=== PATIENT | female | born 1990 | race Caucasian/White ===

== ENCOUNTER 2016-06-26 04:08 | Inpatient (IN) ==
[2016-06-26] MEDS ORDERED: Ondansetron 4 MG/2 ML VIAL IVP ONE ×2 (04:29→08:37)
[2016-06-26] MEDS ORDERED: 0.9 % Sodium Chloride 1,000 ML IVC ONE (04:29)
[2016-06-26] MEDS ORDERED: *HR* Morphine 2 MG/ML SYRINGE IVP PRN (04:32)
--- NOTE | 2016-06-26 04:36 | Emergency Department Note ---
Disposition Clinical Impression: Abdominal pain Qualifiers: Abdominal location: right lower quadrant Qualified Code(s): R10.31 - Right lower quadrant pain Disposition: Still a Patient Referrals: Nevaeh Carter READING PROFESSOR [Primary Care Provider] - Forms: Work/School Release, ED Satisfaction Letter Abdominal Pain HPI - General Chief Complaint: ED Abdominal Pain Stated Complaint: ABD PAIN Time Seen by Provider: 06/26/16 04:16 Source: patient Mode of arrival: ambulatory Limitations: no limitations Nursing Notes Reviewed: Yes Vital Signs Reviewed: Yes - History of Present Illness HPI Narrative: 25-year-old otherwise healthy female, history of hypothyroid presents for evaluation of abdominal pain. Patient states the pain started approximately 2 days ago on the right side and became more localized in the RLQ over 24hrs. Pain is worse with movement or palpation. Patient denies any nausea or vomiting. Patient does note a temperature earlier today at 100.3 Fahrenheit. Patient has not had any anti-inflammatories prior to the emergency department. Patient denies any diarrhea or constipation. Patient does note a diversion appetite today. Patient denies any vaginal bleeding or discharge. Patient had her last menstrual period in the beginning of June. Denies history of ovarian cysts. Patient's last meal was last night. Pt Subjective Complaint: abdominal pain Onset (ago): day(s) Consistency: constant Location: RLQ Pain Scale: 7 - Related Data Allergies Allergy/AdvReac Type Severity Reaction Status Date / Time No Known Allergies Allergy Verified 06/26/16 04:36 All systems ED: reviewed and negative except as stated. Constitutional: Reports: as per HPI, fever Eyes: Reports: as per HPI ENT ED: Reports: as per HPI Cardiovascular: Reports: as per HPI. Denies: chest pain, palpitations Respiratory: Reports: as per HPI. Denies: dyspnea Gastrointestinal: Reports: as per HPI, abdominal pain. Denies: nausea, vomiting , diarrhea, constipation Genitourinary: Reports: as per HPI Musculoskeletal: Reports: as per HPI Integumentary: Reports: as per HPI Neurological: Reports: as per HPI Psychiatric: Reports: as per HPI Endocrine: Reports: as per HPI Hematological/Lymphatic: Reports: as per HPI Abdominal Pain PMH - Past Medical History Medical history: Reports: thyroid disease Psychiatric history: Reports: no psych history - Social History Smoking status: Never smoker Alcohol use: Reports: none Drug use: Reports: none Physical Exam - General Limitations: no limitations General appearance: alert, in no apparent distress - Head Head exam: atraumatic, normocephalic, normal inspection - Eye Eye exam: Present: normal appearance, PERRL, EOMI - ENT ENT exam: normal exam, mucous membranes moist - Neck Neck exam: Present: normal inspection, trachea midline - Chest Chest inspection: Present: normal inspection, symmetric chest wall rise. Absent : tenderness - Respiratory Respiratory exam: Present: normal lung sounds bilaterally. Absent: respiratory distress - Cardiovascular Cardiovascular exam: Present: regular rate, tachycardia - Abdominal Exam Abdominal exam: Present: soft, tenderness (Right lower quadrant tenderness to mild palpation), guarding (Voluntary), normal bowel sounds, tenderness at McBurney's Point. Absent: rebound, Rovsing's sign - Extremities Exam Extremities exam: Present: normal inspection. Absent: pedal edema - Back Exam Back exam: Present: normal inspection - Neurological Exam Neurological exam: Present: alert, oriented X3 - Skin Skin exam: Present: warm, dry, intact, normal color. Absent: rash Course Course Narrative: Patient seen and examined upon arrival. Patient's history is concerning for appendicitis. Patient will get IV fluids, pain control, labs as well as a urine. Patient is a smaller female and is getting IV as well as oral CT contrast. - Reevaluation(s) Reevaluation #1: Patient seen and examined. Patient denies any need for pain medication. Patient's labs are pending. Patient scheduled for CT with by mouth contrast as well as IV contrast. Time: 05:37 Reevaluation #2: Patient pain improved following Dilaudid. Time: 06:33 Vital Signs Temperature 98.2 F 06/26/16 04:15 Pulse Rate 127 06/26/16 04:15 Respiratory Rate 18 06/26/16 04:15 Blood Pressure 130/80 06/26/16 04:15 O2 Sat by Pulse Oximetry 96 06/26/16 04:15 Temperature 98.2 F 06/26/16 04:15 Pulse Rate 127 06/26/16 04:15 Respiratory Rate 18 06/26/16 04:15 Blood Pressure 130/80 06/26/16 04:15 O2 Sat by Pulse Oximetry 96 06/26/16 04:15 Oxygen Delivery Oxygen Delivery Room Air Abdominal Pain - MDM Narrative Medical decision making narrative: Patient presents with right-sided abdominal pain became localized in the right lower quadrant past 24 hours. Patient has a concerning history of appendicitis. Patient's lab work reviewed shows a leukocytosis of 14,000. Patient's abdominal exam is voluntary guarding without rebound in the right lower quadrant. Patient's tender with moderate to deep palpation in the right lower quadrant. Due to patient's body habitus, the patient received oral as well as IV contrast or CT of the abdomen and pelvis. Patient's pain was treated with opioids in the emergency department. At the time of this dictation , the patient CT scan is not official interpreted by the radiologist. The patient will be signed out to the oncoming provider. - Lab Data Lab results reviewed: Yes I reviewed the patient's lab results. Result diagrams: 06/26/16 05:24 06/26/16 05:24 Lab Results 06/26/16 06/26/16 06/26/16 Range/Units 04:35 04:37 05:24 WBC 14.6 H (4.3-11.1) K/mcL RBC 4.72 (3.82-4.97) M/mcL Hgb 15.4 (11.5-15.4) g/dL Hct 44.4 (35.3-44.9) % MCV 94.1 (83.0-100.0) fL MCH 32.6 (28.0-33.3) pg MCHC 34.7 (31.6-35.5) g/dL RDW 11.8 (11.5-14.5) % Plt Count 273 (140-400) K/mcL MPV 9.1 L (9.4-12.4) fL Immature Gran % 0.4 (0-4) % Seg Neutrophils % 85.0 % Lymphocytes % 8.0 % Monocytes % 6.2 % Eosinophils % 0.1 % Basophils % 0.3 % Neutrophils # 12.4 H (1.6-8.9) K/mcL Lymphocytes # 1.2 (0.6-4.6) K/mcL Monocytes # 0.9 (0.0-1.3) K/mcL Eosinophils # 0.0 (0.0-0.6) K/mcL Basophils # 0.0 (0.0-0.2) K/mcL Sodium (136-145) mEq/L Potassium (3.5-4.5) mEq/L Chloride (98-109) mEq/L Carbon Dioxide (19-29) mEq/L BUN (7-20) mg/dL Creatinine (0.57-1.11) mg/dL Est GFR ( Amer) (> 60) Est GFR (Non-Af Amer) (> 60) BUN/Creatinine Ratio (6-26) Glucose (70-99) mg/dL Calculated Osmolality (280-300) Calcium (8.6-10.8) mg/dL Total Bilirubin (0.2-1.2) mg/dL Direct Bilirubin (0.0-0.5) mg/dL Indirect Bilirubin (0.0-1.2) mg/dL AST (5-34) Units/L ALT (0-55) Units/L Alkaline Phosphatase (38-126) Units/L Serum Total Protein (6.0-8.3) g/dL Albumin (3.5-5.0) g/dL Globulin (2.4-3.5) g/dL Albumin/Globulin Ratio (1.1-2.2) Lipase (8-78) Units/L TSH (0.350-4.840) mcIU/mL Urine Color Yellow (Yellow) Urine Clarity Clear (Clear) Urine pH 7.0 (5.0-8.0) pH Units Ur Specific [place] 1.020 (1.010-1.025) Urine Protein Trace (Neg-Trace) mg/dL Urine Glucose (UA) Normal (Normal) mg/dL Urine Ketones >=160 H (Negative) mg/dL Urine Blood Small H (Negative) Urine Nitrite Negative (Negative) Urine Bilirubin Negative (Negative) Urine Urobilinogen Normal (Normal) mg/dL Ur Leukocyte Esterase Negative (Negative) Urine Microscopic WBC 3-5 H (0-3) per hpf Ur Squamous Epith Cells Few (None-Few) per lpf Urine Bacteria Few (None-Few) per hpf Ur Culture Indicated? NO (NO) Urine Test Negative (Negative) 06/26/16 06/26/16 Range/Units 05:24 05:24 WBC (4.3-11.1) K/mcL RBC (3.82-4.97) M/mcL Hgb (11.5-15.4) g/dL Hct (35.3-44.9) % MCV (83.0-100.0) fL MCH (28.0-33.3) pg MCHC (31.6-35.5) g/dL RDW (11.5-14.5) % Plt Count (140-400) K/mcL MPV (9.4-12.4) fL Immature Gran % (0-4) % Seg Neutrophils % % Lymphocytes % % Monocytes % % Eosinophils % % Basophils % % Neutrophils # (1.6-8.9) K/mcL Lymphocytes # (0.6-4.6) K/mcL Monocytes # (0.0-1.3) K/mcL Eosinophils # (0.0-0.6) K/mcL Basophils # (0.0-0.2) K/mcL Sodium 133 L (136-145) mEq/L Potassium 4.0 (3.5-4.5) mEq/L Chloride 101 (98-109) mEq/L Carbon Dioxide 18 L (19-29) mEq/L BUN 12 (7-20) mg/dL Creatinine 0.86 (0.57-1.11) mg/dL Est GFR ( Amer) > 60 (> 60) Est GFR (Non-Af Amer) > 60 (> 60) BUN/Creatinine Ratio 14 (6-26) Glucose 110 H (70-99) mg/dL Calculated Osmolality 276 L (280-300) Calcium 10.6 (8.6-10.8) mg/dL Total Bilirubin 1.3 H (0.2-1.2) mg/dL Direct Bilirubin 0.6 H (0.0-0.5) mg/dL Indirect Bilirubin 0.7 (0.0-1.2) mg/dL AST 19 (5-34) Units/L ALT 15 (0-55) Units/L Alkaline Phosphatase 66 (38-126) Units/L Serum Total Protein 8.6 H (6.0-8.3) g/dL Albumin 4.8 (3.5-5.0) g/dL Globulin 3.8 H (2.4-3.5) g/dL Albumin/Globulin Ratio 1.3 (1.1-2.2) Lipase 4 L (8-78) Units/L TSH 0.448 (0.350-4.840) mcIU/mL Urine Color (Yellow) Urine Clarity (Clear) Urine pH (5.0-8.0) pH Units Ur Specific [place] (1.010-1.025) Urine Protein (Neg-Trace) mg/dL Urine Glucose (UA) (Normal) mg/dL Urine Ketones (Negative) mg/dL Urine Blood (Negative) Urine Nitrite (Negative) Urine Bilirubin (Negative) Urine Urobilinogen (Normal) mg/dL Ur Leukocyte Esterase (Negative) Urine Microscopic WBC (0-3) per hpf Ur Squamous Epith Cells (None-Few) per lpf Urine Bacteria (None-Few) per hpf Ur Culture Indicated? (NO) Urine Test (Negative) S.B[facility]R. - [facility].A.RDimitry Situation: Demographics Background: Presenting Complaint, Relevant PMH, Meds, & Allergies Assessment: Vital Signs, Course and respsone to treatment, Patient/Family Expectation Recommendation: Barrier(s) to disposition (CT abd pelvis), Recommendation based on pending studies, treatments, or consults S.B.A.RDimitry Report Given to: Dr. Herb GrissomAJuly Repor Time: 07:09 Attestation Statement - Attestation Attestation: I examined this patient and my medical decision-making was reviewed with the SENIOR SOURCING MANAGER/PA/Advanced Practice Nurse/Resident Physician. I agree with the documented findings, disposition and treatment plan as described except to the extent set forth below. Patient to ED with abdominal pain. Onset 2 days ago. Has progressed. Now with no appetite. This kept her up all night. Low-grade fever at home. Denies any vaginal symptoms. On examination she is in no acute distress. She has right lower quadrant tenderness. Plan. Labs and CT scan rule out appendicitis.
[2016-06-26 04:45] LABS: Bilirubin,Urine Negative (Negative); Blood,Urine Small (Negative); Clarity,Urine Clear (Clear); Color,Urine Yellow (Yellow); Glucose,Urine (UA) Normal (Normal); Ketones,Urine >=160 mg/dL (Negative); Leukocyte Esterase,Urine Negative (Negative); Nitrite,Urine Negative (Negative); Protein,Urine Trace mg/dL (Neg-Trace); Urobilinogen,Urine Normal (Normal)
[2016-06-26 04:51] LABS: Bacteria,Urine Few per hpf (None-Few); Squamous Epithelial Cell,Urine Few per lpf (None-Few)
[2016-06-26 05:31] LABS: Basophils % 0.3 %; Eosinophils % 0.1 %; Hematocrit 44.4 % (35.3-44.9); Hemoglobin 15.4 g/dL (11.5-15.4); Immature Granulocytes % 0.4 % (0-4); Lymphocytes # 1.2 K/mcL (0.6-4.6); Mean Corpuscular HGB Conc 34.7 g/dL (31.6-35.5); Mean Corpuscular Hemoglobin 32.6 pg (28.0-33.3); Mean Corpuscular Volume 94.1 fL (83.0-100.0); Mean Platelet Volume 9.1 fL (9.4-12.4); Monocytes # 0.9 K/mcL (0.0-1.3); Monocytes % 6.2 %; Neutrophils # 12.4 K/mcL (1.6-8.9); Platelet Count 273 K/mcL (140-400); Red Blood Count 4.72 M/mcL (3.82-4.97); Red Cell Distribution Width 11.8 % (11.5-14.5)
[2016-06-26 05:47] LABS: Alanine Aminotransferase 15 Units/L (0-55); Albumin 4.8 g/dL (3.5-5.0); Albumin/Globulin Ratio 1.3 (1.1-2.2); Alkaline Phosphatase 66 Units/L (38-126); Aspartate Amino Transferase 19 Units/L (5-34); BUN/Creatinine Ratio 14 (6-26); Bilirubin,Direct 0.6 mg/dL (0.0-0.5); Bilirubin,Indirect 0.7 mg/dL (0.0-1.2); Bilirubin,Total 1.3 mg/dL (0.2-1.2); Blood Urea Nitrogen 12 mg/dL (7-20); Calcium 10.6 mg/dL (8.6-10.8); Carbon Dioxide 18 mEq/L (19-29); Chloride 101 mEq/L (98-109); Globulin 3.8 g/dL (2.4-3.5); Glucose 110 mg/dL (70-99); Lipase 4 Units/L (8-78); Osmolality,Calculated 276 (280-300); Sodium 133 mEq/L (136-145); Total Protein 8.6 g/dL (6.0-8.3); eGFR For African Americans > 60 (> 60); eGFR For Non-African Americans > 60 (> 60)
[2016-06-26] MEDS ORDERED: *HR* HYDROmorphone (PF) 1 MG/ML SYRINGE IVP ONE (06:05)
[2016-06-26] MEDS ORDERED: Ampicillin/Sulbactam 3,000 MG in 0.9 % Sodium Chloride Mini Bag 100 ML IVPB ONE (06:40)
--- NOTE | 2016-06-26 07:18 | Emergency Department Note ---
Disposition Clinical Impression: Abdominal pain Qualifiers: Abdominal location: right lower quadrant Qualified Code(s): R10.31 - Right lower quadrant pain Acute appendicitis Qualifiers: Acute appendicitis type: unspecified acute appendicitis type Qualified Code(s) : K35.80 - Unspecified acute appendicitis Disposition: Admitted As Inpatient Condition: Good Referrals: Nevaeh Carter PATENT PROSECUTION ATTORNEY [Primary Care Provider] - Forms: ED Satisfaction Letter, Work/School Release Abdominal Pain HPI - General Chief Complaint: ED Abdominal Pain Stated Complaint: ABD PAIN Time Seen by Provider: 06/26/16 04:16 Source: patient Mode of arrival: ambulatory - History of Present Illness Pt Subjective Complaint: abdominal pain Location: RLQ Pain Scale: 7 - Related Data Allergies Allergy/AdvReac Type Severity Reaction Status Date / Time No Known Allergies Allergy Verified 06/26/16 04:36 Constitutional: Reports: as per HPI, fever Eyes: Reports: as per HPI ENT ED: Reports: as per HPI Cardiovascular: Reports: as per HPI. Denies: chest pain, palpitations Respiratory: Reports: as per HPI. Denies: dyspnea Gastrointestinal: Reports: as per HPI, abdominal pain. Denies: nausea, vomiting , diarrhea, constipation Genitourinary: Reports: as per HPI Musculoskeletal: Reports: as per HPI Integumentary: Reports: as per HPI Neurological: Reports: as per HPI Psychiatric: Reports: as per HPI Endocrine: Reports: as per HPI Hematological/Lymphatic: Reports: as per HPI Abdominal Pain PMH - Past Medical History Medical history: Reports: thyroid disease Psychiatric history: Reports: no psych history - Social History Smoking status: Never smoker Alcohol use: Reports: none Drug use: Reports: none Physical Exam - General Limitations: no limitations General appearance: alert, in no apparent distress Course Course Narrative: This is a continuation of prior documentation. - Reevaluation(s) Reevaluation #1: Patient seen and examined. Pain is controlled. Antibiotic initiated. Patient updated on plan of care. Time: 07:15 - Consultations Consultation #1: Spoke with Dr. Paz. States he will take her to the OR from the ED. Time: 07:16 Vital Signs Temperature 98.2 F 06/26/16 04:15 Pulse Rate 127 06/26/16 04:15 Respiratory Rate 18 06/26/16 04:15 Blood Pressure 130/80 06/26/16 04:15 O2 Sat by Pulse Oximetry 96 06/26/16 04:15 Temperature 98.2 F 06/26/16 04:15 Pulse Rate 127 06/26/16 04:15 Respiratory Rate 18 06/26/16 04:15 Blood Pressure 130/80 06/26/16 04:15 O2 Sat by Pulse Oximetry 96 06/26/16 04:15 Oxygen Delivery Oxygen Delivery Room Air Abdominal Pain - MDM Narrative Medical decision making narrative: Patient scan came back that shows CT acute appy. Patient will be taken to the OR from the ED. This information was discussed with the patient at bedside. All questions were answered. - Lab Data Lab results reviewed: Yes I reviewed the patient's lab results. Result diagrams: 06/26/16 05:24 06/26/16 05:24 Lab Results 06/26/16 06/26/16 06/26/16 Range/Units 04:35 04:37 05:24 WBC 14.6 H (4.3-11.1) K/mcL RBC 4.72 (3.82-4.97) M/mcL Hgb 15.4 (11.5-15.4) g/dL Hct 44.4 (35.3-44.9) % MCV 94.1 (83.0-100.0) fL MCH 32.6 (28.0-33.3) pg MCHC 34.7 (31.6-35.5) g/dL RDW 11.8 (11.5-14.5) % Plt Count 273 (140-400) K/mcL MPV 9.1 L (9.4-12.4) fL Immature Gran % 0.4 (0-4) % Seg Neutrophils % 85.0 % Lymphocytes % 8.0 % Monocytes % 6.2 % Eosinophils % 0.1 % Basophils % 0.3 % Neutrophils # 12.4 H (1.6-8.9) K/mcL Lymphocytes # 1.2 (0.6-4.6) K/mcL Monocytes # 0.9 (0.0-1.3) K/mcL Eosinophils # 0.0 (0.0-0.6) K/mcL Basophils # 0.0 (0.0-0.2) K/mcL Sodium (136-145) mEq/L Potassium (3.5-4.5) mEq/L Chloride (98-109) mEq/L Carbon Dioxide (19-29) mEq/L BUN (7-20) mg/dL Creatinine (0.57-1.11) mg/dL Est GFR ( Amer) (> 60) Est GFR (Non-Af Amer) (> 60) BUN/Creatinine Ratio (6-26) Glucose (70-99) mg/dL Calculated Osmolality (280-300) Calcium (8.6-10.8) mg/dL Total Bilirubin (0.2-1.2) mg/dL Direct Bilirubin (0.0-0.5) mg/dL Indirect Bilirubin (0.0-1.2) mg/dL AST (5-34) Units/L ALT (0-55) Units/L Alkaline Phosphatase (38-126) Units/L Serum Total Protein (6.0-8.3) g/dL Albumin (3.5-5.0) g/dL Globulin (2.4-3.5) g/dL Albumin/Globulin Ratio (1.1-2.2) Lipase (8-78) Units/L TSH (0.350-4.840) mcIU/mL Urine Color Yellow (Yellow) Urine Clarity Clear (Clear) Urine pH 7.0 (5.0-8.0) pH Units Ur Specific [place] 1.020 (1.010-1.025) Urine Protein Trace (Neg-Trace) mg/dL Urine Glucose (UA) Normal (Normal) mg/dL Urine Ketones >=160 H (Negative) mg/dL Urine Blood Small H (Negative) Urine Nitrite Negative (Negative) Urine Bilirubin Negative (Negative) Urine Urobilinogen Normal (Normal) mg/dL Ur Leukocyte Esterase Negative (Negative) Urine Microscopic WBC 3-5 H (0-3) per hpf Ur Squamous Epith Cells Few (None-Few) per lpf Urine Bacteria Few (None-Few) per hpf Ur Culture Indicated? NO (NO) Urine Test Negative (Negative) 06/26/16 06/26/16 Range/Units 05:24 05:24 WBC (4.3-11.1) K/mcL RBC (3.82-4.97) M/mcL Hgb (11.5-15.4) g/dL Hct (35.3-44.9) % MCV (83.0-100.0) fL MCH (28.0-33.3) pg MCHC (31.6-35.5) g/dL RDW (11.5-14.5) % Plt Count (140-400) K/mcL MPV (9.4-12.4) fL Immature Gran % (0-4) % Seg Neutrophils % % Lymphocytes % % Monocytes % % Eosinophils % % Basophils % % Neutrophils # (1.6-8.9) K/mcL Lymphocytes # (0.6-4.6) K/mcL Monocytes # (0.0-1.3) K/mcL Eosinophils # (0.0-0.6) K/mcL Basophils # (0.0-0.2) K/mcL Sodium 133 L (136-145) mEq/L Potassium 4.0 (3.5-4.5) mEq/L Chloride 101 (98-109) mEq/L Carbon Dioxide 18 L (19-29) mEq/L BUN 12 (7-20) mg/dL Creatinine 0.86 (0.57-1.11) mg/dL Est GFR ( Amer) > 60 (> 60) Est GFR (Non-Af Amer) > 60 (> 60) BUN/Creatinine Ratio 14 (6-26) Glucose 110 H (70-99) mg/dL Calculated Osmolality 276 L (280-300) Calcium 10.6 (8.6-10.8) mg/dL Total Bilirubin 1.3 H (0.2-1.2) mg/dL Direct Bilirubin 0.6 H (0.0-0.5) mg/dL Indirect Bilirubin 0.7 (0.0-1.2) mg/dL AST 19 (5-34) Units/L ALT 15 (0-55) Units/L Alkaline Phosphatase 66 (38-126) Units/L Serum Total Protein 8.6 H (6.0-8.3) g/dL Albumin 4.8 (3.5-5.0) g/dL Globulin 3.8 H (2.4-3.5) g/dL Albumin/Globulin Ratio 1.3 (1.1-2.2) Lipase 4 L (8-78) Units/L TSH 0.448 (0.350-4.840) mcIU/mL Urine Color (Yellow) Urine Clarity (Clear) Urine pH (5.0-8.0) pH Units Ur Specific [place] (1.010-1.025) Urine Protein (Neg-Trace) mg/dL Urine Glucose (UA) (Normal) mg/dL Urine Ketones (Negative) mg/dL Urine Blood (Negative) Urine Nitrite (Negative) Urine Bilirubin (Negative) Urine Urobilinogen (Normal) mg/dL Ur Leukocyte Esterase (Negative) Urine Microscopic WBC (0-3) per hpf Ur Squamous Epith Cells (None-Few) per lpf Urine Bacteria (None-Few) per hpf Ur Culture Indicated? (NO) Urine Test (Negative) - Radiology Data Radiology results reviewed: Yes I reviewed the patient's radiology results. Abdomen/Pelvis CT 06/26/16 04:30 IMPRESSION: 1. Acute appendicitis. Extensive periappendiceal inflammation could represent phlegmon, but no obvious abscess or perforation is identified. 2. Trace to fluid in the abdomen and pelvis is likely reactive. Some peritoneal enhancement in the pelvis could represent developing peritonitis. D/ / José Jones MD / José Jones MD Interpreting Provider: José Jones MD
--- NOTE | 2016-06-26 08:05 | Anesthesia Evaluation PreOp ---
Date of Encounter: 06/26/16 Time of Encounter: 08:36 - Past History Planned Operation: Lap. Appy Cardiac History: Denies any Significant Hx Pulmonary History: Denies Any Significant HX BRINE WELL OPERATOR History: Denies Any Significant HX Other Medical History: Thyroid (Hypothyroid (Gretta's thyroiditis)) Anesthesia History: No Prior Anesthetic Complications, Past Anesthesia (none) : No Test: Negative (06/26/2016) Alcohol Use: none Drug use: none Medications and Allergies Allergies No Known Allergies Allergy (Verified 06/26/16 04:36) - Meds/Allergy Pre-op Review Medications Reviewed: Yes Allergies Reviewed: Yes Beta Blockers on Current Med List: No Anesthesia Results - Labs 06/26/16 05:24 06/26/16 05:24 Laboratory Tests 06/26/16 04:35 Urine Test Negative Anesthesia Exam O2 Sat Height 1.65 m Weight 51.71 kg O2 Sat by Pulse Oximetry 96 O2 Sat by Pulse Oximetry 96 Vital Signs Temp Pulse Resp BP Pulse Ox 98.2 F 127 18 130/80 96 06/26/16 04:15 06/26/16 04:15 06/26/16 04:15 06/26/16 04:15 06/26/16 04:15 Height: 5'5'' Weight: 114# NPO (# of Hours): > 8 hrs Pain Scale: 0 Pain Scale Used: Numeric (1 - 10) - HEENT Pupil (Motor): Pupils equal, EOMI Mallampati: II Teeth: Normal Oral Opening: Greater than 3 - BRINE WELL OPERATOR LOC: Oriented BRINE WELL OPERATOR Motor: Normal RUE, Normal LUE, Normal RLE, Normal LLE, Normal Face BRINE WELL OPERATOR Sensory: Normal: RUE, LUE, RLE, LLE, Face - Cardiac Rhythm: Regular Murmur: None JVD: No Carotid Bruit: No - Pulmonary Breath Sounds: bilateral Clear Respiratory Effort: Symmetrical Anesthesia Assess/Plan ASA Score: 2, E Modified Reasnor Scale for Level of Consciousness: Cooperative, oriented, and tranquil Anesthetic Plan: General Autologous Blood: Yes Monitoring Plan: Standard Monitors Recovery Plan: PACU
[2016-06-26] MEDS ORDERED: *HR* Midazolam HCl 2 MG/2 ML VIAL ONE ×2 (08:14→10:14)
[2016-06-26] MEDS ORDERED: *HR* FentaNYL (PF) 100 MCG/2 ML VIAL ONE ×3 (08:14→10:15)
[2016-06-26] MEDS ORDERED: *HR* Propofol 200 MG/20 ML VIAL IVP ONE (08:14)
[2016-06-26] MEDS ORDERED: *HR* Rocuronium Bromide 50 MG/5 ML VIAL ONE (08:17)
[2016-06-26] MEDS ORDERED: Dexamethasone 4 MG/ML VIAL ONE (08:17)
[2016-06-26] MEDS ORDERED: *HR* Succinylcholine 200 MG/10 ML VIAL IVP ONE (08:17)
[2016-06-26] MEDS ORDERED: Lidocaine -MPF 2% 2 ML VIAL ONE (08:17)
[2016-06-26] MEDS ORDERED: Ondansetron 4 MG/2 ML VIAL ONE (08:17)
--- NOTE | 2016-06-26 08:24 | General Surg History&Physical ---
Date of Encounter: 06/26/16 Time of Encounter: 07:55 History of Present Illness Chief complaint: Right lower quadrant abdominal pain, acute appendicitis HPI: Ms. Medellin is a 25 year old female referred to surgical services after presenting to [facility] ED with approximately 2 day history of progressive right lower quadrant abdominal pain. The patient indicates that the pain has been progressive and is located in the right lower quadrant. It has not been associated with any fevers, chills, nausea or vomiting. The patient is anorexic, her last meal was yesterday. Laboratories is notable for leukocytosis and CT demonstrates prominent periappendiceal stranding consistent with acute appendicitis. Past medical history: Hypothyroidism Surgical history: Carbon teeth extraction Allergies: No known drug allergies Medications: Synthroid Social history: G0, P0; last menstrual period early June (approximately 3 weeks ago). Never smoker; admits to an occasional alcoholic beverage (slightly less than weekly); denies any illicit drug use Family history: Noncontributory Physical Examination: Thin, age-appropriate female in no acute distress; height 1.65 m; weight 51.7 kg BMI 19.0 patient is afebrile, 98.2; pulse 97, respirations 18, blood pressure 98/64. SPO2 on room air 96% Skin: Warm, no obvious jaundice Lungs: Bilaterally clear to auscultation; no obvious abdominal pain with deep inspiration Cardiac: Regular rate, no appreciable murmurs Abdomen: Soft, nondistended with tenderness in the right lower quadrant. No appreciable intra-abdominal masses. No rebound. Hypoactive bowel sounds Extremities: No obvious clubbing cyanosis or edema. Laboratories: White count 14.6; hemoglobin 15.4, hematocrit 44.4; platelet count 273,000. Sodium 133, potassium 4.0, chloride 101, bicarbonate 18, Bun 12, creatinine 0.86 LFTs within normal limits; urinalysis notable for urine ketones greater than or equal to 160; microscopic urinalysis negative; urine negative CT: Was personally reviewed and ED; findings include a calcified granuloma left lower lobe; minimal periportal edema with normal gallbladder, pancreas, spleen, adrenals and kidneys. Dilated appendix with enhancing mucosa. Extensive periappendiceal stranding with trace fluid in the pelvis and abdomen. Impression: 25-year-old female with approximately a 48 hour history progressive right lower quadrant abdominal pain. Physical and radiologic findings consistent with acute appendicitis for which surgery has been recommended. The patient is a reasonable candidate for laparoscopic appendectomy but understands that an open appendectomy may become necessary. Risks of surgery include hemorrhage, infection, intra-abdominal abscess, injury to adjacent structures such as bowel, bladder, and ureters. The possibility of removing a normal appendix was also discussed. If a normal appendix is encountered it will be removed so this diagnosis will not be in doubt in the future. The patient expressed understanding and is willing to proceed with surgery. Consent has been obtained. Past Med Surg Social Fam HX - Past Medical History Medical history: thyroid disease Psychiatric history: no psych history - Social History Smoking Status: Never smoker Smokeless Tobacco Status: No Alcohol use: none Drug use: none Medications and Allergies Allergies No Known Allergies Allergy (Verified 06/26/16 04:36) Review of Systems All systems PM: A 10-system review of systems was performed and is negative for pertinent findings except as documented above in the HPI. General Surgery Exam Initial Vital Signs Temp Pulse Resp BP Pulse Ox 98.2 F 127 18 130/80 96 06/26/16 04:15 06/26/16 04:15 06/26/16 04:15 06/26/16 04:15 06/26/16 04:15 Results - Labs 06/26/16 05:24 06/26/16 05:24 Abnormal lab results WBC 14.6 K/mcL (4.3-11.1) H 06/26/16 05:24 MPV 9.1 fL (9.4-12.4) L 06/26/16 05:24 Neutrophils # 12.4 K/mcL (1.6-8.9) H 06/26/16 05:24 Sodium 133 mEq/L (136-145) L 06/26/16 05:24 Carbon Dioxide 18 mEq/L (19-29) L 06/26/16 05:24 Glucose 110 mg/dL (70-99) H 06/26/16 05:24 Calculated Osmolality 276 (280-300) L 06/26/16 05:24 Total Bilirubin 1.3 mg/dL (0.2-1.2) H 06/26/16 05:24 Direct Bilirubin 0.6 mg/dL (0.0-0.5) H 06/26/16 05:24 Serum Total Protein 8.6 g/dL (6.0-8.3) H 06/26/16 05:24 Globulin 3.8 g/dL (2.4-3.5) H 06/26/16 05:24 Lipase 4 Units/L (8-78) L 06/26/16 05:24 Urine Ketones >=160 mg/dL (Negative) H 06/26/16 04:37 Urine Blood Small (Negative) H 06/26/16 04:37 Urine Microscopic WBC 3-5 per hpf (0-3) H 06/26/16 04:37 All other labs normal.
[2016-06-26] MEDS ORDERED: *HR* Promethazine 25 MG/ML VIAL IVP PRN ×2 (08:37→14:20)
[2016-06-26] MEDS ORDERED: *HR* HYDROmorphone (PF) 1 MG/ML SYRINGE IVP PRN ×2 (08:37→11:53)
[2016-06-26] MEDS ORDERED: *HR* Labetalol 100 MG/20 ML MDV IVP PRN (08:37)
[2016-06-26] MEDS ORDERED: Bupivacaine/EPI 1:200k 0.25%PF 10 ML VIAL INFILT ONE ×2 (09:24→09:56)
[2016-06-26] MEDS ORDERED: Ringers Solution, Lactated 500 ML IVC ONE ×2 (11:10→14:21)
--- NOTE | 2016-06-26 11:14 | Operative Note ---
Date of procedure: 06/26/16 Pre-op diagnosis: acute appendicitis Post-op diagnosis: other (acute perforated retrocecal appendicitis) Procedure: laparoscopy, open appendectomy Complications: none apparent Anesthesia: GETA Local Anesthetics: 0.25% Sensorcaine HCL with Epinephrine 1:200,000 SubQ (cc) ( 40mL) Surgeon: Jaren Paz Estimated blood loss (cc): 20 IV fluids (cc): 1,500 Specimen: appendix Condition: stable Disposition: PACU Procedure in Detail: The patient was brought to the operating room where she was placed supine upon the operating room table. The patient was appropriately identified as to person and procedure. The accuracy of this information was confirmed by the procedure team. The patient was intubated and anesthetized under the supervision of Dr. Jae Rushing. Once anesthesia was induced, the abdomen was examined. A vague nonspecific thickening in the right lower quadrant consistent with the diagnosis was palpable. The abdomen was prepped and draped in usual sterile fashion. Several milliliters of 0.25% bupivacaine with 1-200, 000 units epinephrine was infiltrated into the infraumbilical skin and subcutaneous tissue. A small transverse incision was made, dissection was carried to the fascia. Fascia was grasped and elevated. Additional bupivacaine with epinephrine was infiltrated before the fascia was incised and placement of an 11 mm Xcel port. The rigid laparoscope was placed within the obturator to visualize passage through the layers of the anterior abdominal wall. Once the abdominal cavity was accessed, the obturator was replaced by the rigid laparoscope and the abdomen was insufflated with gaseous carbon dioxide. There was no obvious visible injury from establishing the port. Under direct visualization, a 5 mm port was established in the midline suprapubic region and a 12 mm port was placed in the left lower quadrant, midclavicular line. Both sites were infiltrated with bupivacaine with epinephrine solution. Using endoscopic [place], the cecum was elevated and examined. The appendix was not immediately identified. The lateral peritoneal reflection was incised allowing the cecum to be more fully immobilized. Despite this the appendix was not readily identified. Ultimately I abandoned the laparoscopic approach. An oblique skin incision was placed cephalad to the right anterior superior iliac spine after infiltrating the skin with several milliliters of 0.25% bupivacaine with 1:200,000 units epinephrine. Dissection was carried through the subcutaneous tissue with bleeding points controlled with electrocautery. The aponeurosis of the external oblique was infiltrated with the bupivacaine and epinephrine solution and then incised transversely. The oblique musculature was split in the direction of their fibers exposing the transversalis fascia which was grasped and elevated. The transversalis fascia was infiltrated bupivacaine with epinephrine and then incised. Atraumatic entry was completed into the abdomen. The cecum was exteriorized allowing me to identify a retrocecal appendix which was markedly enlarged and thickened. The appendix was dissected from it location behind the cecum and skeletonized. The appendix was transected at its junction with the cecum using an Ethicon ATS 45 mm stapler (blue cartridge). The mesoappendix was transected with a second application of the Ethicon ATS stapler using a vascular cartridge. The appendix demonstrated necrotic changes and was perforated in the distal 1/3. The appendix was removed and sent to pathology for analysis. The small bowel was examined with no obvious Meckel's diverticulum was encountered. No other abnormalities were evident. The cecum and small bowel returned to the usual anatomical location the right abdomen and pelvis was irrigated with warm sterile saline which was evacuated with the suction device. Hemostasis was deemed adequate. Fascia of the infraumbilical opening was closed with interrupted [id number] of 0 Vicryl followed by closure of the fascia of the incision with running interlocking 0 Vicryl. The more anterior fascia was reapproximated with figure of eights O Vicryl. The subcutaneous tissue was reapproximated with running 3-0 Vicryl. The skin edges of the incision in the right lower quadrant and port sites were approximated with subcuticular 4-0 Vicryl. The incisions were sealed with Dermabond dermal adhesive. The patient was taken to PACU in stable condition. Needle, sponge, and instrument counts were correct at the close of the case. Total volume of 0.25% bupivacaine with 1 -200,000 units epinephrine used during this procedure, 40 mL.
[2016-06-26] MEDS ORDERED: Ondansetron 4 MG/2 ML VIAL IVP PRN (11:53)
[2016-06-26] MEDS ORDERED: Acetaminophen 325 MG TABLET PO PRN (11:53)
--- NOTE | 2016-06-26 11:56 | Anesthesia Evaluation Post Op ---
Date of Encounter: 06/26/16 Time of Encounter: 11:54 - Vital Signs Vital Signs: Vital Signs/O2 Sat, Most Current Temp Pulse Resp BP Pulse Ox 97.6 F 96 12 124/89 98 06/26/16 11:47 06/26/16 11:47 06/26/16 11:47 06/26/16 11:47 06/26/16 11:47 - Lungs Lungs: Clear Ascult./Percussion - Airway Airway: Non-obstructed - Cardiovascular Regular Rate - Mental Status Mental Status: Alert & Oriented, Answers Appropriately - Pain Pain Scale: 0 Pain Scale used: Numeric (1 - 10) - Nausea Vomiting Nausea Vomiting: Not Present - Hydration Hydration: Tolerates oral liquids, Has not voided - Discharge PostOp Status: Transfer Patient to floor
[2016-06-26] MEDS: Piperacillin/Tazobactam 3.375 GM in D5% in Water (Mini-Bag+) 100 ML IVPB SCH ×2 (12:11→20:55)
[2016-06-26] MEDS: Ringers Solution, Lactated 1,000 ML IVC SCH ×2 (12:12→20:56)
[2016-06-27] MEDS: *HR* OxyCODONE/APAP 5/325 TABLET PO PRN ×3 (04:07→17:01)
[2016-06-27] MEDS: Piperacillin/Tazobactam 3.375 GM in D5% in Water (Mini-Bag+) 100 ML IVPB SCH ×2 (04:07→11:16)
[2016-06-27 04:33] LABS: Basophils % 0.1 %; Hematocrit 34.3 % (35.3-44.9); Immature Granulocytes % 0.5 % (0-4); Lymphocytes # 1.2 K/mcL (0.6-4.6); Lymphocytes % 8.4 %; Mean Corpuscular HGB Conc 33.8 g/dL (31.6-35.5); Mean Corpuscular Hemoglobin 33.1 pg (28.0-33.3); Mean Platelet Volume 9.8 fL (9.4-12.4); Monocytes # 1.2 K/mcL (0.0-1.3); Monocytes % 8.3 %; Neutrophils # 11.8 K/mcL (1.6-8.9); Platelet Count 225 K/mcL (140-400); Red Cell Distribution Width 12.1 % (11.5-14.5); Segmented Neutrophils % 82.7 %
[2016-06-27 04:43] LABS: Hemoglobin 11.6 g/dL (11.5-15.4)
[2016-06-27 11:28] VITALS: BP 97/66
--- NOTE | 2016-06-27 13:15 | General Surgery Progress Note ---
Date of Encounter: 06/27/16 Time of Encounter: 13:07 Subjective Patient reports: feels better, pain is less, tolerating a regular diet Narrative: General Surgery Progress Note / Discharge summary postoperative day #1: Patient status post laparoscopy, open appendectomy for acutely gangrenous, perforated appendicitis. Patient feeling much improved; right lower quadrant abdominal pain significantly reduced. afebrile, vital signs stable, no nausea or vomiting. The patient is tolerating diet lungs: Clear, no abdominal pain with deep inspiration cardiac: Regular rate without appreciable murmurs; most recent vital signs per nursing at 11:27 showed tachycardia 106/min. That was not apparent during my exam abdomen: Soft, port sites and incision right lower quadrant clean and dry. Bowel sounds present. Minimal tenderness right lower quadrant. Laboratories: White count 14.2 (on admission 14.6); hemoglobin 11.6, hematocrit 34.3 - diminished with perioperative IV fluids Impression: acceptable post op status. S/p laparoscopy, open appendectomy for acute retrocecal appendicitis with perforation. patient aware of the operative findings and the risk of post op infection/ intra abdominal abscess. minimal pain. No fever, chills, N/V. Discussed with patient - will discharge home and manage as outpatient. Follow up office - 07/01/2016 Objective Vital Signs - Last 8 Hours Temp Pulse Resp BP Pulse Ox 06/27/16 11:27 97.9 F 106 16 97/66 98 06/27/16 09:13 97 06/27/16 07:15 98.1 F 96 16 83/57 97 Intake and Output 06/26/16 06/27/16 06/27/16 23:59 07:59 15:59 Intake Total 1160 / 1160 100 / 100 100 / 100 Output Total 400 / 400 Balance 760 / 760 100 / 100 100 / 100 Intake: IV Fluids 1100 / 1100 100 / 100 100 / 100 Lactated Ringers 1,000 ML 1000 / 1000 @ 80 mls/hr IVC .[id number] SHRUTHI Rx#:[id number] Zosyn 3.375 GM In 100 / 100 100 / 100 100 / 100 Dextrose 5% (Minibag+) 100 ML 100 ML @ 25 mls/hr IVPB Q8H SHRUTHI Rx#: [id number] Oral 60 / 60 Output: Urine 400 / 400 Other: Meal Breakfast Percent of Meal Consumed 50% # Voids 3 Weight 55.656 kg Patient Weight 06/27/16 23:59 Weight 55.656 kg - Labs 06/27/16 03:30 06/26/16 05:24 - VTE Documentation of Mechanical Device: Intermittent pneumatic compression device Consult Discharge Plan - Plan Referrals: Nevaeh Crater, [facility] [Primary Care Provider] -
--- NOTE | 2016-06-27 13:19 | Discharge Summary ---
Outpatient Proc Discharge Plan - Plan Additional Instructions: Regular diet patient may shower, wash incisions with soap and water Activity as tolerated; lifting limitedto less than 20 pounds Tylenol, ibuprofen, Motrin, Advil, Aleve, etc. as needed for pain Prescription: Percocet 5/325, #20, 1 every 6 hours as needed for pain not relieved by over the counter medications Prescription: Augmentin 500 mg, #21, 1 TID follow up office, 07/01/2016 Home Medications: No Known Home Drugs 06/26/16 [History]
--- NOTE | 2016-06-27 13:22 | Discharge Summary ---
Outpatient Proc Discharge Plan - Plan Additional Instructions: Regular diet patient may shower, wash incisions with soap and water Activity as tolerated; lifting limitedto less than 20 pounds Tylenol, ibuprofen, Motrin, Advil, Aleve, etc. as needed for pain Prescription: Percocet 5/325, #20, 1 every 6 hours as needed for pain not relieved by over the counter medications Prescription: Augmentin 500 mg, #21, 1 TID follow up office, 07/01/2016 Prescriptions: Amoxicillin/Clavulanate [Augmentin] 500 mg PO TID #21 tablet OxyCODONE/APAP 5/325 [Percocet 5/325 MG] 1 each PO Q6H PRN #20 tablet PRN Reason: Pain Home Medications: Acetaminophen [Tylenol] 650 mg PO Q6HR PRN #0 tablet 06/27/16 [Rx] Amoxicillin/Clavulanate [Augmentin] 500 mg PO TID #21 tablet 06/27/16 [Rx] OxyCODONE/APAP 5/325 [Percocet 5/325 MG] 1 each PO Q6H PRN #20 tablet 06/27/16 [ Rx]
== END 2016-06-27 17:45 | disposition home or self-care (01) | DRG 340 ==
LOC: 3BNU 04:08 → EMEROO 04:08 → OBSVTOIN 07:36 → 3BNU 08:20
PROVIDERS: ADMIT Surgery; ATTEND Surgery